=== PATIENT | male | born 1955 | race Caucasian/White ===

== ENCOUNTER 2018-11-01 04:42 | Emergency (ER) | payer BC ==
[2018-11-01] MEDS ORDERED: Ketorolac Tromethamine 30 MG/ML VIAL ONE (05:15)
[2018-11-01] MEDS ORDERED: Morphine 4 MG/ML VIAL ONE ×2 (05:15→07:08)
[2018-11-01 05:28] LABS: #Eosinphils 0.1 thou/uL (0.0-0.7); #Lymphocytes 2.1 thou/uL (1.20-3.40); #Monocytes 0.6 thou/uL (0.11-0.59); #Neutrophils 6.8 thou/uL (1.40-6.50); %Basophils 0.3 % (0.0-1.0); %Eosinophils 0.9 % (0.0-10.0); %Lymphocytes 22.1 % (21.0-51.0); %Monocytes 6.4 % (0.0-10.0); %Neutrophils 70.3 % (42.0-75.0); Hemoglobin 13.7 g/dL (14.0-18.0); Mean Corpuscular HGB CONC 32.9 g/dL (32.0-36.0); Mean Corpuscular Hemoglobin 28.5 pg (27.0-31.0); Mean Corpuscular Volume 86.7 fL (78.0-98.0); Mean Platelet Volume 7.3 fL (7.4-10.4); Platelet Count 239 thou/uL (130-400); RBC Distribution Width 13.4 % (11.5-14.5); Red Blood Cell (RBC) Count 4.81 mill/uL (4.70-6.10); White Blood Cell (WBC) Count 9.6 thou/uL (4.8-10.8)
[2018-11-01 05:30] LABS: Bilirubin Negative (Negative); Blood, Urine Large (Negative); Clarity CLOUDY (Clear); Glucose, Urine (Dipstick) Negative (Negative); Leukocyte Negative (Negative); Nitrite Negative (Negative); Protein, Urine (Dipstick) 30 mg/dL (Neg-Trace); Specific Gravity, Urine 1.031 (1.002-1.036); Urobilinogen 0.2 mg/dL (0.2-1.0)
[2018-11-01 05:33] LABS: Bacteria/HPF None Seen HPF (None Seen); Hyaline Casts/LPF 0-3 HYALINE CAST LPF (0-3 Hyaline); Pathc Cast-AUWi Flag 0.13 (0-2.49); Squamous Epithelial None Seen HPF (0-3)
[2018-11-01 05:41] LABS: ALT (SGPT) 19 U/L (8-55); AST (SGOT) 18 U/L (5-34); Alkaline Phosphatase 102 U/L (40-150); Anion Gap 14 mmol/L (10-20); BUN (Urea Nitrogen) 17 mg/dL (8.4-25.7); Bilirubin, Total 0.3 mg/dL (0.2-1.2); Calc. Creatinine Clearance 0 mL/min (70-130); Calcium 9.2 mg/dL (7.8-10.44); Carbon Dioxide 21 mmol/L (23-31); Chloride 109 mmol/L (98-107); Estimated GFR-MDRD 86; Globulin 2.9 g/dL (2.4-3.5); Glucose 124 mg/dL (80-115); Potassium 4.4 mmol/L (3.5-5.1); Protein, Total 6.9 g/dL (5.8-8.1); Sodium 140 mmol/L (136-145)
[2018-11-01 06:03] LABS: RBC/HPF 21-50 HPF (0-3); WBC/HPF 0-3 HPF (0-3)
[2018-11-01 06:04] LABS: Crystals/HPF 2+ CA OXALATE HPF (Negative)
--- NOTE | 2018-11-01 07:17 | CT ---
ABDOMEN AND PELVIS CT WITHOUT CONTRAST: Date: 11/01/18 INDICATION: History of left flank pain. FINDINGS: No consolidation of the lung base is visualized. Mild to moderate obstructive uropathy of the proxima l left urinary collection system to the level of the proximal left ureter is a result of calcificatio n with craniocaudal dimension of 6 mm x 5 mm axially. On the basis of the coronal imaging, this could reflect two closely opposed calculi rather than one larger calculus, although this is difficult to r eliably delineate. No right-sided hydronephrosis. There is a nonobstructing punctate calculus of the mid portion of righ t kidney. Colonic diverticula are present. There is no free air. There is limited evaluation of the solid abdom inal organs, bowel, lymph nodes, and vasculature on the basis of noncontrast technique. Scattered oss eous degenerative changes are present. IMPRESSION: 1. Mild to moderate proximal left obstructive uropathy due to proximal left ureterolithiasis, as dis cussed above. 2. Nonobstructive punctate right nephrolithiasis. POS: [facility]
== END 2018-11-01 07:11 | disposition home or self-care (01) ==
LOC: ERS 04:42
DX: N20.1 Calculus of ureter (principal); Z87.891 Personal history of nicotine dependence; I25.2 Old myocardial infarction; Z79.899 Other long term (current) drug therapy; Z79.82 Long term (current) use of aspirin
CPT/HCPCS: 74176; 80053; 81003; 81015; 85025; 87086; 96361; 96374; 96375; 96376; J1885; J2270

== ENCOUNTER 2022-06-06 12:22 | Inpatient (IN) | payer BC, MEDICARE ==
[2022-06-06] MEDS ORDERED: Aspirin Chewable 81 MG TAB ONE (12:55)
[2022-06-06 13:13] LABS: Hemoglobin 13.9 g/dL (14.0-18.0); Mean Corpuscular HGB CONC 32.8 g/dL (32.0-36.0); Mean Corpuscular Hemoglobin 28.9 pg (27.0-31.0); Mean Corpuscular Volume 88.3 fl (78.0-98.0); Mean Platelet Volume 7.5 fL (7.4-10.4); Platelet Count 213 10x3/uL (130-400); RBC Distribution Width 12.9 % (11.5-14.5); Red Blood Cell (RBC) Count 4.82 mill/uL (4.70-6.10)
[2022-06-06 13:27] LABS: ALT (SGPT) 24 U/L (8-55); AST (SGOT) 21 U/L (5-34); Albumin 4.1 g/dL (3.4-4.8); Alkaline Phosphatase 90 U/L (40-110); Anion Gap 14 mmol/L (10-20); BUN (Urea Nitrogen) 12 mg/dL (8.4-25.7); Bilirubin, Total 0.8 mg/dL (0.2-1.2); Calc. Creatinine Clearance 0 mL/min (70-130); Calcium 9.3 mg/dL (7.8-10.44); Carbon Dioxide 23 mmol/L (23-31); Chloride 103 mmol/L (98-107); Estimated GFR 88; Globulin 3.4 g/dL (2.4-3.5); Glucose 117 mg/dL (80-115); Potassium 4.9 mmol/L (3.5-5.1); Protein, Total 7.5 g/dL (5.8-8.1); Sodium 135 mmol/L (136-145)
[2022-06-06 13:35] LABS: Band 13 % (5-11); Lymphocytes 13 % (21-51); MDiff Complete? YES; Metamyelocyte 1 % (0-0); Monocytes 6 % (0-10); Neutrophil 66 % (42-75); Platelet Morphology Comment Appears Adequate; RBC Morphology Normal; Vacuoles SLIGHT
[2022-06-06 13:56] LABS: SARS-CoV-2 NAA Rapid Test Not Detected (NotDetected)
[2022-06-06] MEDS ORDERED: Cefepime 2 GM VIAL ONE (14:53)
[2022-06-06] MEDS ORDERED: VANCOMYCIN 2 GRAM/500 ML BAG 2 GM in Premix Bag 1 BAG IVPB SCH (15:15)
[2022-06-06] MEDS ORDERED: Senokot S 8.6-50 MG TAB PO PRN (15:18)
[2022-06-06] MEDS ORDERED: Bisacodyl 5 MG TAB PO PRN (15:18)
[2022-06-06 16:37] LABS: Troponin I Less than 0.010 ng/mL (< 0.028)
[2022-06-06] MEDS ORDERED: Acetaminophen 500 MG TAB ONE (16:37)
[2022-06-06 18:12] VITALS: BMI 36.8
[2022-06-06 19:25] LABS: Troponin I Less than 0.010 ng/mL (< 0.028)
[2022-06-06 20:20] LABS: Bacteria/HPF None Seen HPF (None Seen); Bilirubin Negative (Negative); Blood, Urine Negative (Negative); Clarity Clear (Clear); Glucose, Urine (Dipstick) Normal (Negative); Ketone, Urine Negative (Negative); Leukocyte Negative Leu/uL (Negative); Nitrite Negative (Negative); Protein, Urine (Dipstick) Negative (Neg-Trace); RBC/HPF 0-3 HPF (0-3); Specific Gravity, Urine 1.018 (1.002-1.036); Squamous Epithelial None Seen HPF (0-3); Urobilinogen Normal mg/dL (Less than 2); WBC/HPF 0-3 HPF (0-3); pH, Urine 6.5 (5.0-9.0)
[2022-06-06] MEDS: cefTRIAXone\\ROCEPHIN 2 GM in Sodium Chloride 0.9% 100 ML IVPB SCH (20:35)
[2022-06-06] MEDS: Famotidine 20 MG TAB PO SCH (20:36)
[2022-06-06] MEDS ORDERED: Vancomycin 1 GM in Premix Bag 1 BAG IVPB SCH (21:00)
[2022-06-06] MEDS ORDERED: Ibuprofen 600 MG TAB PO SCH (21:00)
[2022-06-06] MEDS ORDERED: Sodium Chloride 0.9% 500 ML IVPB SCH (23:30)
[2022-06-07] MEDS ORDERED: Enoxaparin Sodium 120 MG/0.8 ML SYRINGE SC SCH ×2 (01:00→10:00)
[2022-06-07] MEDS: VANCOMYCIN 1.25 GM/250 ML BAG 1.25 GM in Premix Bag 1 BAG IVPB SCH ×2 (04:02→16:07)
[2022-06-07 05:18] LABS: #Lymphocytes 1.8 thou/uL (1.20-3.40); #Monocytes 0.8 thou/uL (0.11-0.59); %Basophils 0.1 % (0.0-1.0); %Eosinophils 0.3 % (0.0-10.0); %Monocytes 7.3 % (0.0-10.0); %Neutrophils 75.3 % (42.0-75.0); Hemoglobin 12.7 g/dL (14.0-18.0); Mean Corpuscular HGB CONC 32.4 g/dL (32.0-36.0); Mean Corpuscular Hemoglobin 28.7 pg (27.0-31.0); Mean Corpuscular Volume 88.6 fl (78.0-98.0); Mean Platelet Volume 7.5 fL (7.4-10.4); Platelet Count 181 10x3/uL (130-400); Red Blood Cell (RBC) Count 4.43 mill/uL (4.70-6.10); White Blood Cell (WBC) Count 10.6 10x3/uL (4.8-10.8)
[2022-06-07 05:50] LABS: Anion Gap 14 mmol/L (10-20); BUN (Urea Nitrogen) 14 mg/dL (8.4-25.7); Calc. Creatinine Clearance 152 mL/min (70-130); Calcium 8.7 mg/dL (7.8-10.44); Carbon Dioxide 19 mmol/L (23-31); Chloride 107 mmol/L (98-107); Estimated GFR 97; Glucose 106 mg/dL (80-115); Magnesium 1.7 mg/dL (1.6-2.6); Potassium 3.9 mmol/L (3.5-5.1); Sodium 136 mmol/L (136-145)
[2022-06-07 05:54] LABS: Phosphorus 3.4 mg/dL (2.3-4.7)
[2022-06-07] MEDS ORDERED: TURMERIC ROOT EXTRACT 500 MG PO SCH (09:00)
[2022-06-07] MEDS ORDERED: Enoxaparin Sodium 40 MG/0.4 ML SYRINGE SC SCH (09:00)
[2022-06-07] MEDS ORDERED: PHYTONADIONE 100 MCG PO SCH (09:00)
[2022-06-07] MEDS: Famotidine 20 MG TAB PO SCH ×2 (09:23→20:47)
[2022-06-07] MEDS: Aspirin 81 mg Enteric Coated Tablet PO SCH (09:23)
[2022-06-07] MEDS: Vit A,C & E/Lutein/Minerals Tablet PO SCH (09:23)
[2022-06-07] MEDS: cefTRIAXone\\ROCEPHIN 2 GM in Sodium Chloride 0.9% 100 ML IVPB SCH (17:48)
[2022-06-07] MEDS: Acetaminophen 325 MG TAB PO PRN (18:02)
[2022-06-07] MEDS: Fluticasone Propionate Nasal Spray 16 gm Bottle NASAL PRN (20:46)
[2022-06-07] MEDS: Enoxaparin Sodium 120 MG/0.8 ML SYRINGE SC SCH (23:45)
[2022-06-08 03:30] LABS: #Lymphocytes 2.5 thou/uL (1.20-3.40); #Monocytes 0.7 thou/uL (0.11-0.59); #Neutrophils 4.1 thou/uL (1.40-6.50); %Basophils 0.2 % (0.0-1.0); %Eosinophils 0.7 % (0.0-10.0); %Lymphocytes 33.8 % (21.0-51.0); %Neutrophils 55.3 % (42.0-75.0); Mean Corpuscular HGB CONC 32.8 g/dL (32.0-36.0); Mean Corpuscular Hemoglobin 29.2 pg (27.0-31.0); Mean Platelet Volume 7.1 fL (7.4-10.4); Platelet Count 179 10x3/uL (130-400); White Blood Cell (WBC) Count 7.4 10x3/uL (4.8-10.8)
[2022-06-08 03:49] LABS: Anion Gap 11 mmol/L (10-20); BUN (Urea Nitrogen) 12 mg/dL (8.4-25.7); Calc. Creatinine Clearance 129 mL/min (70-130); Calcium 9.1 mg/dL (7.8-10.44); Carbon Dioxide 26 mmol/L (23-31); Chloride 106 mmol/L (98-107); Estimated GFR 89; Glucose 99 mg/dL (80-115); Potassium 4.2 mmol/L (3.5-5.1); Sodium 139 mmol/L (136-145)
[2022-06-08] MEDS: Vancomycin 1.5 GRAM/300 ML BAG 1.5 GM in Premix Bag 1 BAG IVPB SCH ×2 (04:06→15:15)
[2022-06-08] MEDS: Acetaminophen 325 MG TAB PO PRN ×2 (05:45→19:38)
[2022-06-08] MEDS: Enoxaparin Sodium 120 MG/0.8 ML SYRINGE SC SCH ×2 (08:39→21:10)
[2022-06-08] MEDS: Famotidine 20 MG TAB PO SCH ×2 (08:39→21:10)
[2022-06-08] MEDS: Aspirin 81 mg Enteric Coated Tablet PO SCH (08:39)
[2022-06-08] MEDS: Vit A,C & E/Lutein/Minerals Tablet PO SCH (08:39)
[2022-06-08] MEDS: cefTRIAXone\\ROCEPHIN 2 GM in Sodium Chloride 0.9% 100 ML IVPB SCH (16:53)
[2022-06-08] MEDS: Fluticasone Propionate Nasal Spray 16 gm Bottle NASAL PRN (19:40)
[2022-06-09] MEDS: Vancomycin 1.5 GRAM/300 ML BAG 1.5 GM in Premix Bag 1 BAG IVPB SCH (04:14)
[2022-06-09 05:25] LABS: #Eosinphils 0.1 thou/uL (0.0-0.7); #Lymphocytes 2.2 thou/uL (1.20-3.40); #Monocytes 0.4 thou/uL (0.11-0.59); #Neutrophils 2.4 thou/uL (1.40-6.50); %Basophils 0.1 % (0.0-1.0); %Eosinophils 1.1 % (0.0-10.0); %Lymphocytes 43.9 % (21.0-51.0); %Monocytes 8.4 % (0.0-10.0); %Neutrophils 46.6 % (42.0-75.0); Hemoglobin 11.9 g/dL (14.0-18.0); Mean Corpuscular HGB CONC 33.3 g/dL (32.0-36.0); Mean Corpuscular Hemoglobin 29.2 pg (27.0-31.0); Mean Corpuscular Volume 87.8 fl (78.0-98.0); Mean Platelet Volume 7.3 fL (7.4-10.4); Platelet Count 205 10x3/uL (130-400); RBC Distribution Width 12.8 % (11.5-14.5); Red Blood Cell (RBC) Count 4.09 mill/uL (4.70-6.10); White Blood Cell (WBC) Count 5.1 10x3/uL (4.8-10.8)
[2022-06-09 05:45] LABS: Anion Gap 12 mmol/L (10-20); BUN (Urea Nitrogen) 12 mg/dL (8.4-25.7); Calc. Creatinine Clearance 156 mL/min (70-130); Carbon Dioxide 23 mmol/L (23-31); Chloride 107 mmol/L (98-107); Estimated GFR 98; Glucose 118 mg/dL (80-115); Potassium 3.8 mmol/L (3.5-5.1); Sodium 138 mmol/L (136-145)
[2022-06-09] MEDS: Acetaminophen 325 MG TAB PO PRN (07:16)
[2022-06-09] MEDS: Vit A,C & E/Lutein/Minerals Tablet PO SCH (09:04)
[2022-06-09] MEDS: Aspirin 81 mg Enteric Coated Tablet PO SCH (09:04)
[2022-06-09] MEDS: Famotidine 20 MG TAB PO SCH ×2 (09:05→21:14)
[2022-06-09] MEDS: Enoxaparin Sodium 120 MG/0.8 ML SYRINGE SC SCH (09:05)
[2022-06-09] MEDS: Cephalexin 250 MG CAP PO SCH ×2 (11:34→17:12)
[2022-06-09] MEDS: Apixaban 5 MG TAB PO SCH (21:14)
[2022-06-10] MEDS: Cephalexin 250 MG CAP PO SCH ×2 (00:30→05:46)
[2022-06-10] MEDS: Acetaminophen 325 MG TAB PO PRN (00:35)
[2022-06-10 04:42] LABS: #Eosinphils 0.1 thou/uL (0.0-0.7); #Lymphocytes 2.4 thou/uL (1.20-3.40); #Monocytes 0.5 thou/uL (0.11-0.59); %Basophils 0.1 % (0.0-1.0); %Eosinophils 1.4 % (0.0-10.0); %Lymphocytes 40.8 % (21.0-51.0); %Monocytes 8.1 % (0.0-10.0); %Neutrophils 49.6 % (42.0-75.0); Hemoglobin 11.7 g/dL (14.0-18.0); Mean Corpuscular HGB CONC 32.6 g/dL (32.0-36.0); Mean Corpuscular Hemoglobin 28.8 pg (27.0-31.0); Mean Corpuscular Volume 88.4 fl (78.0-98.0); Platelet Count 235 10x3/uL (130-400); RBC Distribution Width 12.7 % (11.5-14.5); Red Blood Cell (RBC) Count 4.08 mill/uL (4.70-6.10)
[2022-06-10 06:02] LABS: Anion Gap 11 mmol/L (10-20); BUN (Urea Nitrogen) 11 mg/dL (8.4-25.7); Calc. Creatinine Clearance 148 mL/min (70-130); Calcium 9.2 mg/dL (7.8-10.44); Carbon Dioxide 25 mmol/L (23-31); Chloride 106 mmol/L (98-107); Estimated GFR 96; Glucose 102 mg/dL (80-115); Potassium 3.9 mmol/L (3.5-5.1); Sodium 138 mmol/L (136-145)
[2022-06-10 08:21] VITALS: BP 140/76; TEMP 97.3
[2022-06-10] MEDS: Famotidine 20 MG TAB PO SCH (08:46)
[2022-06-10] MEDS: Apixaban 5 MG TAB PO SCH (08:47)
[2022-06-10] MEDS: Vit A,C & E/Lutein/Minerals Tablet PO SCH (08:47)
[2022-06-10] MEDS: Aspirin 81 mg Enteric Coated Tablet PO SCH (08:47)
== END 2022-06-10 09:48 | disposition home or self-care (01) | DRG 603 ==
LOC: ERS 12:22 → 2SW 14:56 → OBSVTOIN 06-08 15:29
PROVIDERS: ADMIT Hospitalist; ATTEND Internal Medicine
DX: L03.115 Cellulitis of right lower limb (principal); Z20.822 Contact with and (suspected) exposure to COVID-19; I48.0 Paroxysmal atrial fibrillation; I25.10 Atherosclerotic heart disease of native coronary artery without angina pectoris; I10 Essential (primary) hypertension; R35.0 Frequency of micturition; E78.00 Pure hypercholesterolemia, unspecified; H35.30 Unspecified macular degeneration; I25.2 Old myocardial infarction; Z82.49 Family history of ischemic heart disease and other diseases of the circulatory system; Z88.8 Allergy status to other drugs, medicaments and biological substances; Z95.5 Presence of coronary angioplasty implant and graft
CPT/HCPCS: 36415; 71045; 80048; 80053; 80202; 81001; 83605; 83735; 84100; 84443; 84484; 85025; 87040; 87086; 93005; 93010; 93306; 93970; 94760; 96372; 96375; G0378; J0692; J0696; J1650; J3370; J3490; J7030

== ENCOUNTER 2023-06-26 08:29 | Outpatient (CLI) | payer MEDICARE ==
[2023-06-26] MEDS ORDERED: Iopamidol 370 76% 100 ML VIAL ONE (13:37)
== END 2023-06-26 08:30 | disposition home or self-care (01) ==
LOC: BICCT 08:29
PROVIDERS: ATTEND Urology
DX: Z12.11 Encounter for screening for malignant neoplasm of colon (principal); I25.10 Atherosclerotic heart disease of native coronary artery without angina pectoris; I10 Essential (primary) hypertension; N30.01 Acute cystitis with hematuria; E78.2 Mixed hyperlipidemia; N20.0 Calculus of kidney; R39.11 Hesitancy of micturition; Z79.899 Other long term (current) drug therapy
CPT/HCPCS: 74178; 82565; Q9967